=== PATIENT | male | born 1980 | race African-American/Black ===

== ENCOUNTER 2017-05-17 13:18 | Emergency (ER) | payer MEDICAID ==
[~2017-05-17] VITALS: Ht 188 cm; Wt 104.5 kg
[~2017-05-17 13:18] MED LIST: CEPHALEXIN500 M1 PO; NO HOME MEDICATIONS
[2017-05-17 13:19] VITALS: TEMP 98.1
[2017-05-17] MEDS ORDERED: LIPITOR 40MG TA40 MG PO (13:21)
[2017-05-17] MEDS ORDERED: ZANTAC 150MG T150 MG PO (13:22)
[2017-05-17] MEDS ORDERED: BUSPAR DIVIDOSE15 MG PO (13:22)
[2017-05-17] MEDS ORDERED: DOXYCYCLINE 10100 MG PO (13:44)
[2017-05-17] MEDS ORDERED: NORCO 325 MG-51 TAB PO (13:44)
[2017-05-17 14:45] VITALS: BP 123/70; PULSE 86
== END 2017-05-17 14:46 | disposition home or self-care (01) ==
LOC: COL.ER 13:18
DX: L02.411 Cutaneous abscess of right axilla (principal); L03.111 Cellulitis of right axilla

== ENCOUNTER 2017-06-18 17:37 | Emergency (ER) | payer SELFPAY ==
[~2017-06-18] VITALS: Ht 188 cm; Wt 102.3 kg
[~2017-06-18 17:37] MED LIST changes: +BUSPAR DIVIDOSE15 MG PO; +DOXYCYCLINE 10100 MG PO; +LIPITOR 40MG TA40 MG PO; +NORCO 325 MG-51 TAB PO; +ZANTAC 150MG T150 MG PO
[2017-06-18 17:41] VITALS: BP 138/67; PULSE 69; TEMP 99
== END 2017-06-18 18:49 | disposition home or self-care (01) ==
LOC: COL.ER 17:37
DX: S51.812A Laceration without foreign body of left forearm, initial encounter (principal); Z23 Encounter for immunization; W26.8XXA Contact with other sharp object(s), not elsewhere classified, initial encounter; Y92.007 Garden or yard of unspecified non-institutional (private) residence as the place of occurrence of the external cause; F41.9 Anxiety disorder, unspecified

== ENCOUNTER 2017-07-01 12:31 | Emergency (ER) | payer SELFPAY ==
[~2017-07-01] VITALS: Ht 188 cm; Wt 102.3 kg
[2017-07-01 12:34] VITALS: BP 132/60; PULSE 74; TEMP 98.7
[2017-07-01] MEDS ORDERED: ATARAX 25MG25 MG/TAB PO (13:26)
[2017-07-01] MEDS ORDERED: PREDNISONE20 MG PO (13:26)
== END 2017-07-01 13:43 | disposition home or self-care (01) ==
LOC: COL.ER 12:31
DX: L30.9 Dermatitis, unspecified (principal); E78.1 Pure hyperglyceridemia
CPT/HCPCS: J7512

== ENCOUNTER 2017-07-01 12:35 | Emergency (ER) | payer SELFPAY ==
[2017-07-01 12:40] VITALS: BP 132/60; PULSE 74; TEMP 98.7
[2017-07-01] MEDS ORDERED: PREDNISONE20 MG PO (13:26)
[2017-07-01] MEDS ORDERED: ATARAX 25MG25 MG/TAB PO (13:26)
== END 2017-07-01 13:43 | disposition home or self-care (01) ==
LOC: COL.ER 12:35
DX: Z48.02 Encounter for removal of sutures (principal)

== ENCOUNTER 2019-12-20 21:44 | Emergency (ER) | payer SELFPAY ==
[~2019-12-20 21:44] MED LIST changes: +ATARAX 25MG25 MG/TAB PO; +PREDNISONE20 MG PO
== END 2019-12-20 21:57 | disposition left against medical advice (07) ==
LOC: COL.ER 21:44
DX: Z72.89 Other problems related to lifestyle (principal)